=== PATIENT | male | born 1990 | race African-American/Black ===

== ENCOUNTER 2016-06-10 16:02 | Emergency (ER) | payer SELFPAY ==
[~2016-06-10] VITALS: Ht 188 cm; Wt 72.1 kg
[2016-06-10] MEDS ORDERED: NAPROSYN500 MG PO (17:03)
[2016-06-10] MEDS ORDERED: ULTRAM50 MG PO (17:03)
[2016-06-10 17:36] VITALS: BP 121/85
== END 2016-06-10 17:37 | disposition home or self-care (01) ==
LOC: EME 16:02
DX: S30.0XXA Contusion of lower back and pelvis, initial encounter (principal); W00.0XXA Fall on same level due to ice and snow, initial encounter; F17.200 Nicotine dependence, unspecified, uncomplicated
CPT/HCPCS: 99281; 99283